=== PATIENT | female | born 1965 | race Caucasian/White ===

== ENCOUNTER 2020-03-01 09:59 | Outpatient (CLI) | payer MEDICAID, SELFPAY ==
--- NOTE | 2020-03-01 10:17 | XR_ITS ---
WS: [id number] EXAM: RIGHT SHOULDER: 2 VIEWS DATE OF EXAMINATION: 03/01/2020, 1029 hours COMPARISON: None. HISTORY: 54 years old with right shoulder pain. FINDINGS: There are slight changes of arthritis within the AC joint. No undersurface osteophyte formation. Arya ohumeral joint and greater tuberosity are unremarkable. No soft tissue abnormality is demonstrated. XR/XR shoulder RT min 2V* [id number] IMPRESSION: Slight arthritis in the AC joint. No acute abnormality.
== END 2020-03-01 10:00 | disposition home or self-care (01) ==
LOC: RAD 10:04
PROVIDERS: Family Provider Nurse Practitioner Family; PCP Nurse Practitioner Family; Visit Provider Anesthesiology Pain Medicine
DX: M25.511 Pain in right shoulder (principal); M13.811 Other specified arthritis, right shoulder
CPT/HCPCS: 73030

== ENCOUNTER 2020-03-29 12:39 | Outpatient (CLI) | payer MEDICAID, SELFPAY ==
--- NOTE | 2020-03-29 12:49 | IR_ITS ---
WS: [id number] RIGHT SHOULDER ARTHROGRAM UNDER FLUOROSCOPY. PRIOR TO CT EVALUATION. HISTORY: RIGHT SHOULDER PAIN COMPARISON: None available. FLUOROSCOPY TIME: 1.1 minutes. Procedure, risks and complications were explained to the patient. Consent has been obtained. Under fluoroscopic guidance the skin is marked over the medial superior third of the humeral head, cl eansed with ChloraPrep and anesthetized with lidocaine. 22-gauge spinal needle is inserted to the cor chata of the humeral head. Approximately 12 cc of Omnipaque 240 injected without complication. Patient tolerated the joint distention well. No complications. Good distention of the joint space. No filling defects or loose body. No extravasation into the subac romial or subdeltoid bursa. Mild AC joint disease. IR/IR arthrogram shoulderRT [id number] IMPRESSION: Uncomplicated RIGHT shoulder arthrogram prior to CT.
--- NOTE | 2020-03-29 13:00 | CT_ITS ---
WS: [id number] CT RIGHT SHOULDER ARTHROGRAM HISTORY: right shoulder pain DLP: 1295.98 mGy-cm. All CT scans at [facility] use at least one of these dose optimization techniques: automat ed exposure control; mA and/or kV adjustment per patient size (includes targeted exams where dose is matched to clinical indication); or iterative reconstruction. COMPARISON: 03/01/2020 Good contrast opacification of the joint space. There is no contrast extravasating or extending into the subacromial or subdeltoid bursa. Mild narrowing of the glenohumeral joint. No subchondral cystic changes. No labral tear is identified. Mild to moderate narrowing of the AC joint. There is an osteop hyte from the distal undersurface of the clavicle measuring 5.5 mm with encroachment upon the suprasp inatus muscle. Biceps tendon is in normal position. No bone destruction. No muscle atrophy or fatty replacement. CT/CT shoulder RT w con [id number] IMPRESSION: 1. No rotator cuff tear or labral tear. 2. Distal clavicular osteophyte encroachment upon the supraspinatus muscle nati sures 5.5 mm.
[2020-03-29] MEDS: iohexol 240 mg/mL 50 mL Btl INTRATHECA (14:00)
== END 2020-03-29 12:40 | disposition home or self-care (01) ==
LOC: RAD 12:41
PROVIDERS: PCP Nurse Practitioner Family; Visit Provider Orthopaedic Surgery
DX: M25.511 Pain in right shoulder (principal); M25.711 Osteophyte, right shoulder
CPT/HCPCS: 23350; 73040; 73201; 77002